=== PATIENT | male | born 1940 | race Caucasian/White ===

== ENCOUNTER 2017-11-26 19:27 | Emergency (ER) | payer MEDICARE, OTHER ==
[~2017-11-26] VITALS: Ht 182.9 cm; Wt 85.0 kg
[~2017-11-26 19:27] MED LIST: ATOR10TA PO; HYDR-3240 PO; LEVO100T5 PO; METH750T87 PO; MULT-6 PO; ZOLP10TA5 PO
[2017-11-26 19:42] VITALS: BP 124/77
[2017-11-26] MEDS ORDERED: BACITRACIN ZINC OINT 500U/GM, 0.9 GM ONE (19:55)
[2017-11-26] MEDS ORDERED: DIPH,PERTUSS(ACELL),TET VAC/PF 0.5 ML IM-VACC ONE (19:55)
[2017-11-26] MEDS ORDERED: DIPHTHERIA-TETANUS ADULT 0.5ML IM-VACC ONE (20:00)
[2017-11-26] MEDS ORDERED: FINA1TAB16 PO (20:04)
[2017-11-26] MEDS ORDERED: ASPI-515 PO (20:04)
[2017-11-26] MEDS ORDERED: TAMS-11 PO (20:10)
[2017-11-26] MEDS ORDERED: MICROFIBRILLAR COLLAGEN 0.5GM/PACK TP ONE (21:00)
[2017-11-26] MEDS ORDERED: MICROFIBRILLAR COLLAGEN 1 GM TP ONE (21:00)
== END 2017-11-26 21:14 | disposition home or self-care (01) ==
LOC: ED 20:00
DX: S61.211A Laceration without foreign body of left index finger without damage to nail, initial encounter (principal); W26.0XXA Contact with knife, initial encounter; Y93.89 Activity, other specified; Y99.8 Other external cause status; Y92.009 Unspecified place in unspecified non-institutional (private) residence as the place of occurrence of the external cause
CPT/HCPCS: 90471; 90714; 99283